=== PATIENT | female | born 1985 | race Caucasian/White ===

== ENCOUNTER 2023-04-17 10:28 | Emergency (ER) | payer MEDICAID ==
[~2023-04-17] VITALS: Ht 162.6 cm; Wt 81.8 kg
[~2023-04-17 10:28] MED LIST: ALBU8.5H17 IH; HYDR-4353 PO; TRAM50TA2 PO; [UNRECOGNIZED DRUG - CODE] PO
[2023-04-17 10:32] VITALS: BP 175/92; PULSE 71; RESP 18; TEMP 98.7; O2SAT 99
[2023-04-17 10:52] LABS: BASOPHILS # (AUTO) 0.1 X10'3 (0-0.2); BASOPHILS % (AUTO) 1.3 % (0-1); EOSINOPHILS # (AUTO) 0.6 X10'3 (0-0.9); EOSINOPHILS % (AUTO) 9.1 % (0-6); HEMATOCRIT 40.3 % (35.0-45.0); HEMOGLOBIN 13.9 g/dl (12.0-16.0); LYMPHOCYTES # (AUTO) 2.3 X10'3 (1.1-4.8); LYMPHOCYTES % (AUTO) 33.4 % (21-51); MEAN CORPUSCULAR HEMOGLOBIN 30.9 PG (27.0-31.0); MEAN CORPUSCULAR HGB CONC 34.5 g/dL (33.0-36.5); MEAN CORPUSCULAR VOLUME 89.5 FL (78-98); MEAN PLATELET VOLUME 8.2 FL (7.4-10.4); MONOCYTES # (AUTO) 0.7 X10'3 (0-0.9); MONOCYTES % (AUTO) 10.4 % (2-12); NEUTROPHILS # (AUTO) 3.2 X10'3 (1.8-7.7); NEUTROPHILS % (AUTO) 45.8 % (42-75); PLATELET COUNT 255 X10'3 (140-440); RED BLOOD COUNT 4.51 X10'6 (4.20-5.60); RED CELL DISTRIBUTION WIDTH 13.7 % (11.5-14.5); WHITE BLOOD COUNT 6.9 X10'3 (4.5-11.0)
[2023-04-17 11:12] LABS: ALANINE AMINOTRANSFERASE 23 U/L (12-78); ALBUMIN 4.4 G/DL (3.4-5.0); ALBUMIN/GLOBULIN RATIO 1.2 (1.1-1.5); ALKALINE PHOSPHATASE 44 IU/L (46-116); ANION GAP 9 (8-16); ASPARTATE AMINO TRANSFERASE 23 U/L (10-37); BILIRUBIN,TOTAL 0.4 MG/DL (0.1-1.0); BLOOD UREA NITROGEN 18 MG/DL (7-18); BUN/CREATININE RATIO 22.5 (10.0-20.0); CALCIUM 9.4 MG/DL (8.5-10.1); CHLORIDE 103 MMOL/L (99-107); GLUCOSE 124 MG/DL (70-104); SODIUM 138 MMOL/L (135-145); TOTAL CARBON DIOXIDE 26.2 MMOL/L (24-32); TOTAL PROTEIN 8.1 G/DL (6.4-8.2); eCRCL 85 ML/MIN; eGFR 82 ML/MIN
[2023-04-17 11:21] LABS: PRO BRAIN NATRIURETIC PEPTIDE 37 PG/ML (0-125)
== END 2023-04-17 12:03 | disposition left against medical advice (07) ==
LOC: ER 10:29
DX: R07.89 Other chest pain (principal); Z53.21 Procedure and treatment not carried out due to patient leaving prior to being seen by health care provider
CPT/HCPCS: 36415; 71046; 80053; 83880; 84484; 85025; 93005; 99281

== ENCOUNTER 2024-05-20 23:37 | Emergency (ER) | payer MEDICAID ==
[~2024-05-20] VITALS: Ht 162.6 cm; Wt 80.7 kg
[2024-05-20 23:38] VITALS: TEMP 98.6
[2024-05-21] MEDS ORDERED: NAPR-56 PO (02:26)
[2024-05-21] MEDS ORDERED: AMOX-117 PO (02:26)
[2024-05-21] MEDS: HYDROcodone/acetaminophen 10/325mg tab PO ONE (03:01)
[2024-05-21] MEDS: naproxen 500mg tablet PO ONE (03:01)
[2024-05-21] MEDS: amox tr/potassium clavulanate 875/125mg TAB PO ONE (03:02)
[2024-05-21] MEDS: BUPIVAcaine/PF 2.5 mg/ml (0.25%) 30ml vial IJ ONE (03:02)
[2024-05-21] MEDS: LIDOcaine 1% W/epiNEPHrine 1:100,000 20ml vial IJ ONE (03:02)
[2024-05-21 03:52] VITALS: BP 123/82; PULSE 56; RESP 16; O2SAT 98
== END 2024-05-21 03:59 | disposition home or self-care (01) ==
LOC: ER 23:38
DX: K04.7 Periapical abscess without sinus (principal); K02.9 Dental caries, unspecified; Z88.2 Allergy status to sulfonamides; Z88.1 Allergy status to other antibiotic agents; Z90.89 Acquired absence of other organs; Z79.899 Other long term (current) drug therapy
CPT/HCPCS: 64400; 99284

== ENCOUNTER 2024-07-03 20:45 | Emergency (ER) | payer MEDICAID ==
[~2024-07-03] VITALS: Ht 162.6 cm; Wt 80.3 kg
[~2024-07-03 20:45] MED LIST changes: +AMOX-117 PO
[2024-07-04] MEDS ORDERED: AMOX500C2 PO (01:35)
[2024-07-04] MEDS: ondansetron 4mg rapidly disintigrating tab PO ONE (01:45)
[2024-07-04] MEDS: amoxicillin 250mg capsule PO ONE (01:45)
[2024-07-04 01:46] VITALS: BP 106/62; PULSE 78; RESP 16; TEMP 97.8; O2SAT 98
[2024-07-04] MEDS: ibuprofen 200mg tablet PO ONE (01:54)
== END 2024-07-04 01:55 | disposition home or self-care (01) ==
LOC: ER 20:47
DX: R68.84 Jaw pain (principal); F41.9 Anxiety disorder, unspecified; Z88.2 Allergy status to sulfonamides; Z88.1 Allergy status to other antibiotic agents; Z90.89 Acquired absence of other organs; Z98.890 Other specified postprocedural states
CPT/HCPCS: 99284

== ENCOUNTER 2024-09-19 21:28 | Emergency (ER) | payer MEDICAID ==
[~2024-09-19] VITALS: Ht 162.6 cm; Wt 82.8 kg
[2024-09-19 21:44] VITALS: BP 145/81; PULSE 63; RESP 16; TEMP 97.8; O2SAT 24
--- NOTE | 2024-09-19 21:55 | ELECTROCARDIOGRAPH REPORT ---
[facility] Test Date: 2024-09-19 Test Time: 21:51:45 Pat Name: MIYA SANABRIA Department: EMERGENCY ROOM Room: Gender: F Hub Lead: : 1985 Requested By: ROME BROWN Order Number: [id number] Reading MD: Measurements Intervals [place] Rate: 67 P: 31 PA: 144 QRS: 6 QRSD: 124 T: 58 QT: 422 QTc: 446 Interpretive Statements Sinus rhythm Nonspecific intraventricular conduction delay Please click the below link to view image of tracing.
[2024-09-19 22:11] LABS: BASOPHILS % (AUTO) 0.2 % (0-1); EOSINOPHILS # (AUTO) 0.6 X10'3 (0-0.9); HEMATOCRIT 37.3 % (35.0-45.0); HEMOGLOBIN 13.1 g/dl (12.0-16.0); LYMPHOCYTES # (AUTO) 3.3 X10'3 (1.1-4.8); LYMPHOCYTES % (AUTO) 43.1 % (21-51); MEAN CORPUSCULAR HEMOGLOBIN 29.6 PG (27.0-31.0); MEAN CORPUSCULAR HGB CONC 35.2 g/dL (33.0-36.5); MEAN CORPUSCULAR VOLUME 84.2 FL (78-98); MEAN PLATELET VOLUME 8.4 FL (7.4-10.4); MONOCYTES # (AUTO) 0.4 X10'3 (0-0.9); MONOCYTES % (AUTO) 5.8 % (2-12); NEUTROPHILS # (AUTO) 3.2 X10'3 (1.8-7.7); NEUTROPHILS % (AUTO) 42.9 % (42-75); PLATELET COUNT 294 X10'3 (140-440); RED BLOOD COUNT 4.43 X10'6 (4.20-5.60); RED CELL DISTRIBUTION WIDTH 13.4 % (11.5-14.5); WHITE BLOOD COUNT 7.6 X10'3 (4.5-11.0)
--- NOTE | 2024-09-19 22:24 | RADIOLOGY REPORT ---
CHEST RADIOGRAPH Indication: CP Technique: Single frontal view of the chest was obtained COMPARISON: None FINDINGS: Lines and Tubes: None Lungs: Clear Pleura: No effusion. No pneumothorax. Cardiomediastinal contours: Unremarkable Bones: Unremarkable IMPRESSION: 1. No acute disease.
[2024-09-19 22:25] LABS: ANION GAP 13 (8-16); BLOOD UREA NITROGEN 17 MG/DL (7-18); BUN/CREATININE RATIO 18.7 (10.0-20.0); CALCIUM 9.6 MG/DL (8.5-10.1); CHLORIDE 105 MMOL/L (99-107); CREATININE 0.91 MG/DL (0.40-0.90); GLUCOSE 126 MG/DL (70-104); POTASSIUM 3.1 MMOL/L (3.5-5.1); PRO BRAIN NATRIURETIC PEPTIDE 74 PG/ML (0-125); SODIUM 142 MMOL/L (135-145); TOTAL CARBON DIOXIDE 23.9 MMOL/L (24-32); eCRCL 73 ML/MIN; eGFR 70 ML/MIN
== END 2024-09-20 03:44 | disposition left against medical advice (07) ==
LOC: ER 21:29
DX: R06.02 Shortness of breath (principal); Z53.21 Procedure and treatment not carried out due to patient leaving prior to being seen by health care provider; Z88.2 Allergy status to sulfonamides; Z88.8 Allergy status to other drugs, medicaments and biological substances
CPT/HCPCS: 36415; 71045; 80048; 83880; 84484; 85025; 93005

== ENCOUNTER 2025-01-11 04:54 | Emergency (ER) | payer MEDICAID ==
[~2025-01-11] VITALS: Ht 162.6 cm; Wt 185.0 kg
[2025-01-11 04:58] VITALS: BP 126/89; PULSE 65; TEMP 84.9; O2SAT 99
--- NOTE | 2025-01-11 05:20 | Physician Documentation ---
History of Present Illness ~ Chief Complaint: Jaw Pain Stated Complaint: JAW PAIN Time Seen by MD: 05:18 Primary Medical Doctor: [facility] Patient presents to the emergency room with dental pain. Patient has been suffering from dental pain for a long time and she is trying to follow up to get fitted for dentures. She states that over the past few days her right lower molar has been acting up. No reported abscess or fevers. She is placed on amoxicillin two days ago. She reports taking ibuprofen and Tylenol prior to arrival with no benefit Tetanus Within 5 Years: Yes Medication Reconciliation Allergies: Coded Allergies: sulfamethoxazole (Verified Allergy, Unknown, 01/11/25) hives trimethoprim (Verified Allergy, Unknown, 01/11/25) hives Scheduled Amox Tr/Potassium Clavulanate (Augmentin 875-125 Tablet), 1 TAB PO Q12H Tramadol Hcl (Tramadol Hcl), 50 MG PO Q6H PRN FOR PAIN Scheduled PRN Albuterol Sulfate (Proair Hfa), 2 PUFFS IH Q4H PRN for SOB or wheezing Hydrocodone Bit/Acetaminophen ([place] 10-325 Tablet), 1 TAB PO Q6H PRN for pain Tramadol Hcl (Tramadol Hcl), 50-100 MG PO Q6H PRN FOR PAIN PRN for pain Miscellaneous Medications #48/Iron Cb&Glu/Fa/B6 (Citranatal B-Calm Combo Pack), 1 EACH PO, (Reported) Past Medical History Past Medical History: Hernia, Extremity Fracture, Anxiety Past Surgical History: orthopedic surgeries, tonsillectomy Alcohol Use: Rarely Drug Use: none Lives with: Family Lives In: Home Occupation: employed Review of Systems ROS All review of systems negative except as per HPI Physical Exam Vital Signs: Temperature: 84.9, Source: Oral, Heart Rate: 65, Respiratory Rate: 16, BP: 126/89, Pulse Oximetry: 99, Weight: 185.000 Physical Exam General: Patient is awake, alert, oriented x4 in no acute distress Head: Normocephalic and atraumatic. Eyes: Conjunctival normal. EOMI. PERRL. ENT: Mucous membranes moist. Multiple dental caries. No appreciable abscess Neck: Supple, trachea is midline. Chest: Clear to auscultation bilaterally without rales, rhonchi, or wheezes. There is no accessory muscle use or retractions. Cardiac: RRR without murmurs, gallops, or rubs. Procedures Procedure Note Dental block: Status post informed verbal consent 1% lidocaine with epinephrine was injected to a total of 2 cc at the root of patient's affected right lower molar. Patient tolerated procedure well without complication. Total time of procedure 2 minutes Progress Results/Orders Results/Orders Completed Orders - FERMIN STONE MD Tramadol Tablet (Ultram Tablet) (01/11/25 05:25) Vital Signs 01/11/25 04:58 Temp 84.9 Pulse 65 Resp 16 B/P (MAP) 126/89 Pulse Ox 99 Medical Decision Making Findings Patient presented to the emergency room with dental pain as per HPI. With no appreciable abscess. She is already on antibiotics and she has been instructed to continue this. The need to follow up with the dentist discussed. Departure Disposition: HOME / SELF CARE / HOMELESS Impression: Primary Impression: Tooth pain Condition: Stable Discharge Instructions: Dental Pain Additional Instructions: Follow up with a dentist Referrals: NO PRIMARY CARE PROVIDER (PCP) Prescriptions Tramadol HCl (Tramadol HCl) 50 Mg Tablet 1 TAB PO Q6H PRN PRN for pain, #12 TAB Prov: FERMIN STONE MD 01/11/25 Education Educated: Patient Educated regarding: diagnosis, treatment, need for follow up Signature Scribe Signature: No scribe Attestation: The note accurately reflects work and decisions made by me.Fermin Stone MD 01/11/25 05:37 FERMIN STONE MD Jan 11, 2025 05:20
[2025-01-11 05:35] VITALS: RESP 14
[2025-01-11] MEDS ORDERED: TRAM50TA2 PO (05:36)
== END 2025-01-11 05:44 | disposition home or self-care (01) ==
LOC: ER 04:54
DX: K08.89 Other specified disorders of teeth and supporting structures (principal); F41.9 Anxiety disorder, unspecified; Z88.2 Allergy status to sulfonamides; Z90.89 Acquired absence of other organs; Z88.8 Allergy status to other drugs, medicaments and biological substances; Z79.899 Other long term (current) drug therapy
CPT/HCPCS: 64400; 99284

== ENCOUNTER 2025-01-13 11:02 | Emergency (ER) | payer MEDICAID ==
[~2025-01-13] VITALS: Ht 162.6 cm; Wt 84.1 kg
[2025-01-13] MEDS ORDERED: ketorolac trometh 15mg/ml vial 15 MG/ML ML IM ONE (12:30)
--- NOTE | 2025-01-13 12:40 | Physician Documentation ---
HPI ~ General Chief Complaint: Tooth Problem Stated Complaint: RECHECK TOOTH PAIN Time Seen by MD: 12:11 OK to notify your PCP?: Yes Primary Medical Doctor: [facility] Source: patient Mode of Arrival: POV Exam Limitations: no limitations History of Present Illness HPI Comment 39-year-old female with right lower dental pain which she states she has had for two years. She states she is scheduled to have the tooth removed this week but is here to get some pain medication but she states she does not want any narcotics. She has been taking Tylenol and Motrin without relief. The reason why she does not want narcotics as she states they make her head feel weird. she denies fever, chills, sore throat, shortness of breath, cp, neck pain, lozoya. Medication Reconciliation Allergies: Coded Allergies: sulfamethoxazole (Verified Allergy, Unknown, 01/11/25) hives trimethoprim (Verified Allergy, Unknown, 01/11/25) hives Scheduled Amox Tr/Potassium Clavulanate (Augmentin 875-125 Tablet), 1 TAB PO Q12H Tramadol Hcl (Tramadol Hcl), 50 MG PO Q6H PRN FOR PAIN Scheduled PRN Albuterol Sulfate (Proair Hfa), 2 PUFFS IH Q4H PRN for SOB or wheezing Hydrocodone Bit/Acetaminophen ([place] 10-325 Tablet), 1 TAB PO Q6H PRN for pain Tramadol HCl (Tramadol HCl), 1 TAB PO Q6H PRN PRN for pain Tramadol Hcl (Tramadol Hcl), 50-100 MG PO Q6H PRN FOR PAIN PRN for pain Miscellaneous Medications #48/Iron Cb&Glu/Fa/B6 (Citranatal B-Calm Combo Pack), 1 EACH PO, (Reported) Past Medical History Past Medical History: Hernia, Extremity Fracture, Anxiety Past Surgical History: orthopedic surgeries, tonsillectomy Alcohol Use: Rarely Drug Use: none Lives with: Family Lives In: Home Occupation: employed Review of Systems All Other Systems at this time: Reviewed and Negative Physical Exam Vital Signs: Temperature: 98.2, Source: Temporal, Heart Rate: 80, Respiratory Rate: 16, BP: 116/73, Pulse Oximetry: 97, Weight: 84.090 Oxygen Flow Rate: 0 Physical Exam General Appearance: Alert, WD/WN. NAD. HEENT: NCAT, PERRL, EOMI. No facial swelling, right lower molar carious with surrounding gingiva swelling and erythema with tenderness to palpation. Posterior pharyngeal wall normal. Neck: Supple, trachea midline. No cervical LAD or ttp. Cardiovascular: RRR. No m/r/g. Lungs: CTAB. Breathing unlabored Extremities: Normal inspection. No edema. Skin: Warm/dry, normal color Neurological: Alert and oriented x4, normal gait. Psychiatric: Affect congruent with mood. Progress Results/Orders Results/Orders Completed Orders - JANEL BROWN Ketorolac Trometh 15mg/Ml Vial (Toradol (01/13/25 12:30) Vital Signs 01/13/25 11:49 Temp 98.2 Pulse 80 Resp 16 B/P (MAP) 116/73 Pulse Ox 97 O2 Flow Rate 0 Medical Decision Making Differential Dx:Considerations: Include: Alveolar fracture, Alveolar osteitis, ANUG, Facial Cellulitis, Periapical abscess, Peridontal abscess, Post-extraction bleeding, Pulpitis, Tooth avulsion, Tooth eruption, Tooth Fracture, Trigeminal neuralgia, Tooth subluxation Departure Time of Disposition: 12:38 Disposition: 01 HOME / SELF CARE / HOMELESS Impression: Primary Impression: Dental abscess Condition: Stable Discharge Instructions: Dental Abscess Additional Instructions: CONTINUE TYLENOL AT HOME, HOLD MOTRIN FOR 24HOURS SINCE WE GAVE YOU TORADOL HER E. CONTINUE YOUR ANTIBIOTIC Referrals: NO PRIMARY CARE PROVIDER (PCP) Education Educated: Patient Educated regarding: diagnosis, treatment, need for follow up Signature Scribe Signature: x Attestation: JANEL Green Jan 13, 2025 12:40
[2025-01-13] MEDS: ketorolac trometh 30MG/ML vial 30 MG/ML VIAL IM ONE (12:46)
[2025-01-13] MEDS ORDERED: benzocaine (Anbesol) 12ml bottle MM PRN (12:50)
[2025-01-13 13:03] VITALS: BP 110/78; PULSE 62; RESP 16; TEMP 98.2; O2SAT 98
== END 2025-01-13 13:04 | disposition home or self-care (01) ==
LOC: ER 11:02
DX: K04.7 Periapical abscess without sinus (principal); F41.9 Anxiety disorder, unspecified; Z88.2 Allergy status to sulfonamides; Z90.89 Acquired absence of other organs; Z88.8 Allergy status to other drugs, medicaments and biological substances; Z79.899 Other long term (current) drug therapy
CPT/HCPCS: 96372; 99283; J1885